=== PATIENT | male | born 1970 | race Caucasian/White ===

== ENCOUNTER 2020-06-09 08:36 | Emergency (ER) | payer MEDICAID ==
[~2020-06-09] VITALS: Ht 185.4 cm; Wt 81.4 kg
[2020-06-09 08:39] VITALS: BP 127/87
== END 2020-06-09 09:13 | disposition home or self-care (01) ==
LOC: ED 08:53
DX: K05.00 Acute gingivitis, plaque induced (principal); K08.89 Other specified disorders of teeth and supporting structures
CPT/HCPCS: 99283